=== PATIENT | male | born 1955 | race Caucasian/White ===

== ENCOUNTER 2023-01-14 23:49 | Inpatient (IN) | payer OTHER ==
[~2023-01-14] VITALS: Ht 170.2 cm; Wt 88.1 kg
[2023-01-15 00:39] LABS: Basophils # (auto) 0.1 10 ^3/uL (0-0.2); Basophils % (auto) 1.3 % (0.0-2.0); Eosinophils # (auto) 0.1 10 ^3/uL (0-0.8); Eosinophils % (auto) 1.6 % (0.0-7.0); Hematocrit 44.1 % (41.0-53.0); Hemoglobin 15.3 g/dL (13.5-17.5); Lymphocytes # (auto) 1.5 10 ^3/uL (0.4-5.4); Lymphocytes % (auto) 18.6 % (10.0-50.0); Mean Corpuscular Hemoglobin 35.1 pg (28.0-32.0); Mean Corpuscular Hgb Conc. 34.6 g/dL (32.0-36.0); Mean Corpuscular Volume 101.3 fL (80.0-100.0); Monocytes # (auto) 0.7 10 ^3/uL (0-1.3); Neutrophils # (auto) 5.6 10 ^3/uL (1.6-8.6); Neutrophils % (auto) 69.5 % (37.0-80.0); Nucleated Red Blood Cells % 0.2 %; Red Blood Cells 4.35 10^6/uL (4.5-5.90); Red Cell Distribution Width 14.4 % (11.8-14.3)
[2023-01-15 00:56] LABS: Albumin 3.5 g/dL (3.4-5.0); BUN/Creatinine Ratio 11.2 (10.0-20.0); Calcium 9.2 mg/dL (8.5-10.1); Magnesium 1.7 mg/dL (1.6-2.6); Potassium 3.4 mmol/L (3.5-5.1)
[2023-01-15 00:59] LABS: Bilirubin, Total 0.5 mg/dL (0.2-1.0); Total Protein 6.7 g/dL (6.4-8.2)
[2023-01-15] MEDS ORDERED: PANTOPRAZOLE 40 MG/10 ML VIAL INJ IV ONE (02:00)
[2023-01-15] MEDS ORDERED: SODIUM CHLORIDE 0.9% 1,000 ML IV ONE (02:00)
[2023-01-15] MEDS ORDERED: CLOPIDOGREL BISULFATE 75 MG TAB PO ONE (02:00)
[2023-01-15] MEDS ORDERED: ASPirin 325 MG TAB PO ONE (02:00)
[2023-01-15] MEDS ORDERED: IOHEXOL 350 MG/ML 100ML IJ ONE (02:12)
[2023-01-15] MEDS ORDERED: DOCUSATE SOD 100 MG CAP PO PRN (03:15)
[2023-01-15] MEDS ORDERED: ACETAMINOPHEN 325 MG TAB PO PRN (03:15)
[2023-01-15] MEDS ORDERED: amLODIPine BESYLATE 5 MG TAB PO ONE (03:30)
[2023-01-15 03:43] LABS: Basophils # (auto) 0.1 10 ^3/uL (0-0.2); Eosinophils # (auto) 0.1 10 ^3/uL (0-0.8); Hemoglobin 14.2 g/dL (13.5-17.5); Neutrophils # (auto) 7.3 10 ^3/uL (1.6-8.6)
[2023-01-15 03:44] LABS: Basophils % (auto) 0.7 % (0.0-2.0); Eosinophils % (auto) 0.7 % (0.0-7.0); Hematocrit 40.2 % (41.0-53.0); Lymphocytes % (auto) 10.6 % (10.0-50.0); Mean Corpuscular Hemoglobin 35.4 pg (28.0-32.0); Mean Corpuscular Hgb Conc. 35.2 g/dL (32.0-36.0); Mean Corpuscular Volume 100.3 fL (80.0-100.0); Monocytes # (auto) 0.9 10 ^3/uL (0-1.3); Monocytes % (auto) 9.5 % (0.0-12.0); Neutrophils % (auto) 78.5 % (37.0-80.0); Nucleated Red Blood Cells % 0.2 %; Red Blood Cells 4.01 10^6/uL (4.5-5.90); White Blood Cell 9.3 10^3/uL (4.4-10.8)
[2023-01-15 03:48] LABS: Urine Bacteria NONE SEEN /hpf (None Seen); Urine Blood Negative /uL (Negative); Urine Mucus FEW (None Seen); Urine Specific Gravity 1.045 (1.001-1.035); Urine WBC 1 /hpf (0 - 3)
[2023-01-15 03:49] LABS: Albumin 3.1 g/dL (3.4-5.0); BUN/Creatinine Ratio 12.4 (10.0-20.0); Calcium 8.4 mg/dL (8.5-10.1); Potassium 3.3 mmol/L (3.5-5.1)
[2023-01-15 03:52] LABS: Bilirubin, Total 0.5 mg/dL (0.2-1.0)
[2023-01-15] MEDS ORDERED: NITROGLYCERIN 0.4 MG SL TAB SL PRN (05:00)
[2023-01-15] MEDS ORDERED: MORPHINE SULFATE INJ 2 MG/ml SYRG IV PRN (05:00)
[2023-01-15] MEDS: HYDROcodone-ACET 5/325MG TAB PO PRN (05:53)
[2023-01-15] MEDS: SODIUM CHLORIDE 0.9% 1,000 ML IV SCH ×2 (06:15→22:33)
[2023-01-15] MEDS ORDERED: DEXTROSE (50%) 50ML SYRG IV PRN (07:30)
[2023-01-15] MEDS ORDERED: POTASSIUM CHL 20 Meq TABLET PO ONE (07:45)
[2023-01-15] MEDS: MORPHINE SULFATE INJ 2 MG/ml SYRG IV PRN (09:54)
[2023-01-15] MEDS: ONDANSETRON HCL 4 MG/2 ML VIAL IV PRN (09:54)
[2023-01-15] MEDS: hydrALAZINE HCL 20 MG/ML VL IV PRN ×2 (09:54→15:40)
[2023-01-15 10:24] LABS: INR 0.97 (0.9-1.15); Partial Thromboplastin Time 28.1 sec (24.6-33.4)
[2023-01-15] MEDS: FAMOTIDINE (10MG/ML) 2ML VL IV SCH (10:37)
[2023-01-15] MEDS: METOPROLOL TARTRATE 25 MG TAB PO SCH ×2 (10:39→22:32)
[2023-01-15] MEDS: ASPirin 81 mg TAB PO SCH (10:40)
[2023-01-15] MEDS: ACCU-CHEK COMFORT CURVE STRIP VI SCH ×3 (12:57→22:32)
[2023-01-15] MEDS: InsuLIN REG 1unit/0.01ml Soln (100units/ml) SC SCH ×3 (12:58→22:40)
[2023-01-15 16:22] VITALS: BP 164/90
[2023-01-15 17:00] VITALS: BP 164/90
[2023-01-15 22:00] VITALS: BP 153/92
[2023-01-15] MEDS ORDERED: LORazepam 2MG/ML-1ML VIAL IV PRN ×2 (23:00)
[2023-01-15 23:33] LABS: Alcohol, Urine < 3.0 mg/dL (0-10); Amphetamine Screen, Urine NEGATIVE (NEGATIVE); Barbiturate Scree,Urine NEGATIVE (NEGATIVE); Benzodiazephine Screen, Urine NEGATIVE (NEGATIVE); Cannabinoid Screen, Urine POSITIVE (NEGATIVE)
[2023-01-15 23:40] LABS: Cocaine Screen, Urine NEGATIVE (NEGATIVE); Opiate Scree,Urine NEGATIVE (NEGATIVE); Phencyclidine Screen, Urine NEGATIVE (NEGATIVE)
[2023-01-16 00:14] LABS: Cholesterol 245 mg/dL (< 200)
[2023-01-16 00:17] LABS: HDL Cholesterol 32 mg/dL (40-59); LDL Cholesterol 157 mg/dL (< 100); Triglycerides 379 mg/dL (< 150)
[2023-01-16 05:00] VITALS: BP 147/82
[2023-01-16] MEDS: ACCU-CHEK COMFORT CURVE STRIP VI SCH ×4 (06:38→22:00)
[2023-01-16] MEDS: InsuLIN REG 1unit/0.01ml Soln (100units/ml) SC SCH ×4 (06:41→22:00)
[2023-01-16 07:00] LABS: Basophils # (auto) 0.1 10 ^3/uL (0-0.2); Eosinophils # (auto) 0.1 10 ^3/uL (0-0.8); Hemoglobin 14.1 g/dL (13.5-17.5); Mean Corpuscular Volume 102.7 fL (80.0-100.0); Monocytes # (auto) 0.9 10 ^3/uL (0-1.3); Nucleated Red Blood Cells % 0.1 %
[2023-01-16 07:03] LABS: Basophils % (auto) 0.7 % (0.0-2.0); Eosinophils % (auto) 0.8 % (0.0-7.0); Lymphocytes % (auto) 12.6 % (10.0-50.0); Mean Corpuscular Hemoglobin 35.4 pg (28.0-32.0); Mean Corpuscular Hgb Conc. 34.5 g/dL (32.0-36.0); Monocytes % (auto) 11.2 % (0.0-12.0); Neutrophils # (auto) 6.1 10 ^3/uL (1.6-8.6); Neutrophils % (auto) 74.7 % (37.0-80.0); White Blood Cell 8.2 10^3/uL (4.4-10.8)
[2023-01-16 07:05] LABS: Albumin 3.4 g/dL (3.4-5.0); Calcium 8.5 mg/dL (8.5-10.1); Potassium 3.6 mmol/L (3.5-5.1)
[2023-01-16 07:10] LABS: BUN/Creatinine Ratio 10.7 (10.0-20.0); Bilirubin, Total 0.6 mg/dL (0.2-1.0); Total Protein 6.5 g/dL (6.4-8.2)
[2023-01-16 09:00] VITALS: BP 127/58
[2023-01-16] MEDS: NIFEdipine ER 30 MG TAB PO SCH (09:48)
[2023-01-16] MEDS: ASPirin 81 mg TAB PO SCH (09:48)
[2023-01-16] MEDS: levETIRAcetam 500 MG TAB PO SCH ×2 (09:49→22:17)
[2023-01-16] MEDS: METOPROLOL TARTRATE 25 MG TAB PO SCH ×2 (09:49→22:17)
[2023-01-16] MEDS ORDERED: amLODIPine BESYLATE 5 MG TAB PO SCH (10:00)
[2023-01-16] MEDS: FAMOTIDINE (10MG/ML) 2ML VL IV SCH (12:00)
[2023-01-16 13:00] VITALS: BP 164/78
[2023-01-16] MEDS: SODIUM CHLORIDE 0.9% 1,000 ML IV SCH (13:09)
[2023-01-16] MEDS ORDERED: HALOPERIDOL LACTATE 5 MG/ML INJ VIAL IV PRN (16:15)
[2023-01-16 16:56] VITALS: BP 148/83
[2023-01-16] MEDS ORDERED: LORazepam 2MG/ML-1ML VIAL IV ONE (17:00)
[2023-01-16] MEDS ORDERED: LORazepam 2MG/ML-1ML VIAL IV PRN (17:00)
[2023-01-16] MEDS: MORPHINE SULFATE INJ 2 MG/ml SYRG IV PRN (18:20)
[2023-01-16] MEDS ORDERED: ATOR40TA52 PO (18:40)
[2023-01-16] MEDS ORDERED: METF-370 PO (18:40)
[2023-01-16] MEDS ORDERED: LISI-275 PO (18:40)
[2023-01-16] MEDS ORDERED: GEMF-66 PO (18:40)
[2023-01-16] MEDS ORDERED: ZONI100C43 PO (18:40)
[2023-01-16] MEDS ORDERED: TAMS0.4C36 PO (18:40)
[2023-01-16] MEDS ORDERED: METO-289 PO (18:40)
[2023-01-16 22:00] VITALS: BP_SYST 95
[2023-01-16] MEDS ORDERED: ATORVASTATIN 20 MG TAB PO SCH (22:00)
[2023-01-17 05:00] VITALS: BP 129/68
[2023-01-17] MEDS: SODIUM CHLORIDE 0.9% 1,000 ML IV SCH ×2 (05:15→21:55)
[2023-01-17] MEDS: ACCU-CHEK COMFORT CURVE STRIP VI SCH ×4 (06:00→23:12)
[2023-01-17] MEDS: InsuLIN REG 1unit/0.01ml Soln (100units/ml) SC SCH ×4 (06:01→22:00)
[2023-01-17] MEDS: FAMOTIDINE (10MG/ML) 2ML VL IV SCH (08:17)
[2023-01-17] MEDS: ASPirin 81 mg TAB PO SCH (08:17)
[2023-01-17] MEDS: NIFEdipine ER 30 MG TAB PO SCH (08:18)
[2023-01-17] MEDS: METOPROLOL TARTRATE 25 MG TAB PO SCH ×2 (08:27→22:23)
[2023-01-17 08:30] VITALS: BP 167/100
[2023-01-17 12:31] VITALS: BP 157/94
[2023-01-17] MEDS: levETIRAcetam 500 MG TAB PO SCH ×2 (12:31→22:23)
[2023-01-17] MEDS: ATORVASTATIN 20 MG TAB PO SCH (16:15)
[2023-01-17 16:36] VITALS: BP 155/87
[2023-01-17 22:00] VITALS: BP 163/79
[2023-01-17] MEDS: MORPHINE SULFATE INJ 2 MG/ml SYRG IV PRN (22:24)
[2023-01-18 05:00] VITALS: BP 141/81
[2023-01-18] MEDS: InsuLIN REG 1unit/0.01ml Soln (100units/ml) SC SCH ×4 (06:59→22:25)
[2023-01-18] MEDS: ACCU-CHEK COMFORT CURVE STRIP VI SCH ×4 (06:59→22:25)
[2023-01-18 08:48] VITALS: BP 112/67
[2023-01-18] MEDS: ASPirin 81 mg TAB PO SCH (10:10)
[2023-01-18] MEDS: CLOPIDOGREL BISULFATE 75 MG TAB PO SCH (10:10)
[2023-01-18] MEDS: FAMOTIDINE (10MG/ML) 2ML VL IV SCH (10:10)
[2023-01-18] MEDS: NIFEdipine ER 30 MG TAB PO SCH (10:10)
[2023-01-18] MEDS: levETIRAcetam 500 MG TAB PO SCH ×2 (10:10→22:18)
[2023-01-18] MEDS: METOPROLOL TARTRATE 25 MG TAB PO SCH ×2 (10:11→22:18)
[2023-01-18 13:00] VITALS: BP 147/87
[2023-01-18 17:00] VITALS: BP 152/69
[2023-01-18] MEDS ORDERED: ZOLPIDEM TARTRATE 5 MG TAB PO PRN (17:15)
[2023-01-18 22:00] VITALS: BP 152/72
[2023-01-18] MEDS: ATORVASTATIN 20 MG TAB PO SCH (22:17)
[2023-01-19 01:05] LABS: INR 0.98 (0.9-1.15); Partial Thromboplastin Time 27.4 sec (24.6-33.4)
[2023-01-19 03:08] LABS: Urine Bacteria NONE SEEN /hpf (None Seen); Urine Blood Negative /uL (Negative); Urine WBC 1 /hpf (0 - 3)
[2023-01-19 05:00] VITALS: BP 138/76
[2023-01-19] MEDS: ACCU-CHEK COMFORT CURVE STRIP VI SCH ×4 (06:20→22:19)
[2023-01-19] MEDS: InsuLIN REG 1unit/0.01ml Soln (100units/ml) SC SCH ×4 (06:21→22:00)
[2023-01-19 08:00] VITALS: BP 142/82
[2023-01-19] MEDS: CLOPIDOGREL BISULFATE 75 MG TAB PO SCH (08:55)
[2023-01-19] MEDS: ASPirin 81 mg TAB PO SCH (08:55)
[2023-01-19] MEDS: levETIRAcetam 500 MG TAB PO SCH ×2 (08:55→22:16)
[2023-01-19] MEDS: METOPROLOL TARTRATE 25 MG TAB PO SCH ×2 (08:56→22:16)
[2023-01-19] MEDS: NIFEdipine ER 30 MG TAB PO SCH (08:57)
[2023-01-19 12:22] VITALS: BP 138/80
[2023-01-19] MEDS ORDERED: fentaNYL CITRATE 100 MCG/2 ML VL IV ONE (13:15)
[2023-01-19] MEDS ORDERED: MIDAZOLAM HCL 2MG/2ML 2ml VIAL (1mg/ml) IM ONE (13:15)
[2023-01-19] MEDS ORDERED: diphenhdrAMINE HCL 50 MG/1 ML VL IV ONE (13:15)
[2023-01-19 17:10] VITALS: BP 138/81
[2023-01-19] MEDS: HYDROcodone-ACET 5/325MG TAB PO PRN (22:15)
[2023-01-19] MEDS: ATORVASTATIN 20 MG TAB PO SCH (22:16)
[2023-01-20] MEDS: HYDROcodone-ACET 5/325MG TAB PO PRN ×2 (06:46→22:05)
[2023-01-20] MEDS: InsuLIN REG 1unit/0.01ml Soln (100units/ml) SC SCH ×4 (06:48→22:00)
[2023-01-20] MEDS: ACCU-CHEK COMFORT CURVE STRIP VI SCH ×4 (06:48→22:06)
[2023-01-20 08:40] VITALS: BP 153/83
[2023-01-20] MEDS: NIFEdipine ER 30 MG TAB PO SCH (09:35)
[2023-01-20] MEDS: ASPirin 81 mg TAB PO SCH (09:36)
[2023-01-20] MEDS: CLOPIDOGREL BISULFATE 75 MG TAB PO SCH (09:36)
[2023-01-20] MEDS: levETIRAcetam 500 MG TAB PO SCH ×2 (09:36→22:05)
[2023-01-20] MEDS: METOPROLOL TARTRATE 25 MG TAB PO SCH ×2 (09:36→22:06)
[2023-01-20 12:28] VITALS: BP 145/83
[2023-01-20 17:00] VITALS: BP 125/89
[2023-01-20] MEDS: ATORVASTATIN 20 MG TAB PO SCH (22:05)
[2023-01-21 05:00] VITALS: BP 134/83
[2023-01-21] MEDS: ACCU-CHEK COMFORT CURVE STRIP VI SCH ×4 (06:36→22:20)
[2023-01-21] MEDS: InsuLIN REG 1unit/0.01ml Soln (100units/ml) SC SCH ×4 (06:36→22:00)
[2023-01-21 08:30] VITALS: BP 159/90
[2023-01-21 09:00] VITALS: BP 159/90
[2023-01-21] MEDS: METOPROLOL TARTRATE 25 MG TAB PO SCH ×2 (09:25→22:19)
[2023-01-21] MEDS: NIFEdipine ER 30 MG TAB PO SCH (09:26)
[2023-01-21] MEDS: CLOPIDOGREL BISULFATE 75 MG TAB PO SCH (09:26)
[2023-01-21] MEDS: ASPirin 81 mg TAB PO SCH (09:26)
[2023-01-21] MEDS: levETIRAcetam 500 MG TAB PO SCH ×2 (09:26→22:19)
[2023-01-21 13:00] VITALS: BP 160/94
[2023-01-21] MEDS: hydrALAZINE HCL 20 MG/ML VL IV PRN (15:58)
[2023-01-21 17:12] VITALS: BP 145/88
[2023-01-21 22:00] VITALS: BP 152/75
[2023-01-21] MEDS: ATORVASTATIN 20 MG TAB PO SCH (22:19)
[2023-01-21] MEDS: HYDROcodone-ACET 5/325MG TAB PO PRN (22:20)
[2023-01-22 05:00] VITALS: BP 130/83
[2023-01-22] MEDS: ACCU-CHEK COMFORT CURVE STRIP VI SCH ×4 (06:47→23:13)
[2023-01-22] MEDS: InsuLIN REG 1unit/0.01ml Soln (100units/ml) SC SCH ×4 (06:47→22:00)
[2023-01-22] MEDS ORDERED: CLOP75TA70 PO (07:59)
[2023-01-22] MEDS ORDERED: ATOR20TA50 PO (07:59)
[2023-01-22] MEDS ORDERED: NIFE1TAB31 PO (07:59)
[2023-01-22] MEDS ORDERED: MET25T PO (07:59)
[2023-01-22] MEDS ORDERED: ASPI-325 PO (07:59)
[2023-01-22 09:00] VITALS: BP 161/89
[2023-01-22] MEDS: NIFEdipine ER 30 MG TAB PO SCH (09:17)
[2023-01-22] MEDS: levETIRAcetam 500 MG TAB PO SCH ×2 (09:17→23:13)
[2023-01-22] MEDS: METOPROLOL TARTRATE 25 MG TAB PO SCH ×2 (09:17→23:13)
[2023-01-22] MEDS: ASPirin 81 mg TAB PO SCH (09:17)
[2023-01-22] MEDS: CLOPIDOGREL BISULFATE 75 MG TAB PO SCH (09:17)
[2023-01-22 17:00] VITALS: BP 165/92
[2023-01-22] MEDS: HYDROcodone-ACET 5/325MG TAB PO PRN (17:19)
[2023-01-22 22:00] VITALS: BP 154/84
[2023-01-22] MEDS: ATORVASTATIN 20 MG TAB PO SCH (23:12)
[2023-01-23] VITALS (7 sets, daily range): BP systolic 129–171; BP diastolic 71–102
[2023-01-23] MEDS: InsuLIN REG 1unit/0.01ml Soln (100units/ml) SC SCH (06:38)
[2023-01-23] MEDS: ACCU-CHEK COMFORT CURVE STRIP VI SCH (06:39)
[2023-01-23] MEDS: ONDANSETRON HCL 4 MG/2 ML VIAL IV PRN (08:34)
[2023-01-23] MEDS: hydrALAZINE HCL 20 MG/ML VL IV PRN (08:35)
[2023-01-23] MEDS: levETIRAcetam 500 MG TAB PO SCH ×2 (10:29→22:11)
[2023-01-23] MEDS: CLOPIDOGREL BISULFATE 75 MG TAB PO SCH (10:29)
[2023-01-23] MEDS: ASPirin 81 mg TAB PO SCH (10:29)
[2023-01-23] MEDS: METOPROLOL TARTRATE 25 MG TAB PO SCH ×2 (10:29→22:11)
[2023-01-23] MEDS: NIFEdipine ER 30 MG TAB PO SCH (10:30)
[2023-01-23] MEDS: ATORVASTATIN 20 MG TAB PO SCH (22:11)
[2023-01-24 05:00] VITALS: BP 123/61
[2023-01-24 08:45] VITALS: BP 145/90
[2023-01-24 12:49] VITALS: BP 150/79
[2023-01-24] MEDS: levETIRAcetam 500 MG TAB PO SCH (14:06)
[2023-01-24] MEDS: CLOPIDOGREL BISULFATE 75 MG TAB PO SCH (14:06)
[2023-01-24] MEDS: ASPirin 81 mg TAB PO SCH (14:06)
[2023-01-24] MEDS: NIFEdipine ER 30 MG TAB PO SCH (14:09)
[2023-01-24] MEDS: hydrALAZINE HCL 20 MG/ML VL IV PRN (14:10)
[2023-01-24] MEDS: METOPROLOL TARTRATE 25 MG TAB PO SCH (14:10)
[2023-01-24 16:49] VITALS: BP 156/74
[2023-01-24 17:32] VITALS: BP 160/92
== END 2023-01-24 18:30 | DRG 66 ==
LOC: ER 23:49 → TELE 01-15 04:55 → TELE-WESTW 01-15 16:17
PROVIDERS: ADMIT Nurse Practitioner Family; ATTEND Internal Medicine
PROC: B24BZZ4 Ultrasonography of Heart with Aorta, Transesophageal (ICD-10-PCS; principal; 2023-01-19)
DX: I63.9 Cerebral infarction, unspecified (principal); E87.6 Hypokalemia; I16.0 Hypertensive urgency; G40.409 Other generalized epilepsy and epileptic syndromes, not intractable, without status epilepticus; E11.9 Type 2 diabetes mellitus without complications; I10 Essential (primary) hypertension; R29.6 Repeated falls; N40.0 Benign prostatic hyperplasia without lower urinary tract symptoms; F17.200 Nicotine dependence, unspecified, uncomplicated; E78.5 Hyperlipidemia, unspecified; R29.810 Facial weakness; Z83.3 Family history of diabetes mellitus; Z82.0 Family history of epilepsy and other diseases of the nervous system; Z79.82 Long term (current) use of aspirin; Z79.899 Other long term (current) drug therapy
CPT/HCPCS: 36415; 70450; 70496; 70551; 71045; 71046; 71250; 74176; 80053; 80061; 80307; 81001; 82962; 83735; 83880; 84484; 85025; 85610; 85730; 86850; 86900; 86901; 93005; 93306; 93312; 93886; 95819; 96361; 96374; 97110; 97116; 97163; 97530; 99152; C9113; G0378; J1815; J2250; J2405; J3490

== ENCOUNTER 2023-12-08 14:23 | Inpatient (IN) | payer OTHER ==
[~2023-12-08] VITALS: Ht 170.2 cm; Wt 79.6 kg
[~2023-12-08 14:23] MED LIST: ASPI-325 PO; ATOR20TA50 PO; CLOP75TA70 PO; GEMF-66 PO; LISI-275 PO; MET25T PO; NIFE1TAB31 PO; TAMS0.4C36 PO; ZONI100C43 PO
[2023-12-08 16:46] LABS: Basophils # (auto) 0.1 10 ^3/uL (0-0.2); Basophils % (auto) 0.6 % (0.0-2.0); Eosinophils # (auto) 0 10 ^3/uL (0-0.8); Eosinophils % (auto) 0.1 % (0.0-7.0); Hematocrit 41.3 % (41.0-53.0); Hemoglobin 14.2 g/dL (13.5-17.5); Lymphocytes # (auto) 0.8 10 ^3/uL (0.4-5.4); Lymphocytes % (auto) 7.8 % (10.0-50.0); Mean Corpuscular Hemoglobin 32.8 pg (28.0-32.0); Mean Corpuscular Hgb Conc. 34.4 g/dL (32.0-36.0); Mean Corpuscular Volume 95.4 fL (80.0-100.0); Monocytes # (auto) 0.7 10 ^3/uL (0-1.3); Monocytes % (auto) 6.5 % (0.0-12.0); Neutrophils # (auto) 9.1 10 ^3/uL (1.6-8.6); Red Blood Cells 4.33 10^6/uL (4.5-5.90); Red Cell Distribution Width 13.6 % (11.8-14.3); White Blood Cell 10.7 10^3/uL (4.4-10.8)
[2023-12-08 17:06] LABS: Alanine Aminotransferase 16 U/L (7-40); Albumin 5.1 g/dL (3.2-4.8); Alkaline Phosphatase 101 U/L (46-116); Anion Gap 7 (5-15); Aspartate Aminotransferase 12 U/L (13-40); BUN/Creatinine Ratio 13.1 (10.0-20.0); Blood Urea Nitrogen 16 mg/dL (9-23); Carbon Dioxide 22 mmol/L (20-30); Chloride 108 mmol/L (98-107); Glucose 133 mg/dL (74-106); Lipase 100 U/L (12-53); Potassium 3.7 mmol/L (3.5-5.1); Sodium 137 mmol/L (136-145)
[2023-12-08 17:07] LABS: Bilirubin, Total 0.5 mg/dL (0.2-1.0); Total Protein 7.3 g/dL (5.7-8.2)
[2023-12-08 20:15] LABS: Urine Bacteria None Seen /hpf (None Seen)
[2023-12-08 20:54] LABS: Urine Blood Negative /uL (Negative); Urine Clarity Clear (Clear); Urine Color Yellow (Yellow); Urine Mucus FEW (None Seen); Urine Protein, UAD TRACE (Negative); Urine Specific Gravity 1.027 (1.001-1.035); Urine Urobilinogen Normal (Negative); Urine WBC 4 /hpf (0 - 3)
[2023-12-08] MEDS: cefTRIAXone 1GM/50ML D5W 50 ML IV ONE (22:50)
[2023-12-08] MEDS: ONDANSETRON HCL 4 MG/2 ML VIAL IV ONE (23:56)
[2023-12-09] MEDS ORDERED: NITROGLYCERIN 0.4 MG SL TAB SL PRN
[2023-12-09] MEDS ORDERED: ONDANSETRON HCL 4 MG/2 ML VIAL IV PRN
[2023-12-09] MEDS ORDERED: DEXTROSE (50%) 50ML SYRG IV PRN
[2023-12-09] MEDS ORDERED: MORPHINE SULFATE INJ 2 MG/ml SYRG IV PRN
[2023-12-09] MEDS ORDERED: DOCUSATE SOD 100 MG CAP PO PRN
[2023-12-09] MEDS ORDERED: ACETAMINOPHEN 325 MG TAB PO PRN
[2023-12-09] MEDS: SODIUM CHLORIDE 0.9% 1,000 ML IV SCH (00:51)
[2023-12-09] MEDS: HYDROcodone-ACET 5/325MG TAB PO PRN (02:24)
[2023-12-09] MEDS: InsuLIN REG 1unit/0.01ml Soln (100units/ml) SC SCH (07:00)
[2023-12-09 07:23] LABS: Basophils # (auto) 0 10 ^3/uL (0-0.2); Basophils % (auto) 0.3 % (0.0-2.0); Eosinophils # (auto) 0 10 ^3/uL (0-0.8); Eosinophils % (auto) 0.1 % (0.0-7.0); Hematocrit 39.5 % (41.0-53.0); Hemoglobin 13.4 g/dL (13.5-17.5); Lymphocytes # (auto) 0.9 10 ^3/uL (0.4-5.4); Lymphocytes % (auto) 7.7 % (10.0-50.0); Mean Corpuscular Hemoglobin 32.6 pg (28.0-32.0); Mean Corpuscular Hgb Conc. 33.8 g/dL (32.0-36.0); Mean Corpuscular Volume 96.6 fL (80.0-100.0); Monocytes % (auto) 7.8 % (0.0-12.0); Neutrophils # (auto) 10.4 10 ^3/uL (1.6-8.6); Neutrophils % (auto) 84.1 % (37.0-80.0); Red Blood Cells 4.09 10^6/uL (4.5-5.90); Red Cell Distribution Width 13.3 % (11.8-14.3); White Blood Cell 12.3 10^3/uL (4.4-10.8)
[2023-12-09] MEDS: ACCU-CHEK COMFORT CURVE STRIP VI SCH (07:24)
[2023-12-09 07:37] LABS: Alanine Aminotransferase 12 U/L (7-40); Albumin 4.7 g/dL (3.2-4.8); Alkaline Phosphatase 92 U/L (46-116); Anion Gap 12 (5-15); Aspartate Aminotransferase 16 U/L (13-40); BUN/Creatinine Ratio 13.5 (10.0-20.0); Bilirubin, Total 0.4 mg/dL (0.2-1.0); Blood Urea Nitrogen 14 mg/dL (9-23); Calcium 9.1 mg/dL (8.5-10.1); Carbon Dioxide 16 mmol/L (20-30); Chloride 109 mmol/L (98-107); Glucose 130 mg/dL (74-106); Potassium 3.7 mmol/L (3.5-5.1); Sodium 137 mmol/L (136-145); Total Protein 6.5 g/dL (5.7-8.2)
[2023-12-09] MEDS: FAMOTIDINE (10MG/ML) 2ML VL IV SCH (10:21)
[2023-12-09] MEDS: hydrALAZINE HCL 20 MG/ML VL IV PRN (17:17)
[2023-12-09 18:52] VITALS: BP 147/87; PULSE 83; RESP 16; TEMP 97.6; O2SAT 93
[2023-12-09 20:00] VITALS: BP 146/66; PULSE 69; RESP 20; TEMP 99; O2SAT 94
[2023-12-10] VITALS (8 sets, daily range): BP systolic 128–181; BP diastolic 65–89; PULSE 59–86; RESP 16–18; TEMP 97.7–98.8; O2SAT 93–96
[2023-12-10 05:34] LABS: Basophils # (auto) 0.1 10 ^3/uL (0-0.2); Basophils % (auto) 0.8 % (0.0-2.0); Eosinophils # (auto) 0 10 ^3/uL (0-0.8); Eosinophils % (auto) 0.4 % (0.0-7.0); Hematocrit 38.2 % (41.0-53.0); Hemoglobin 13.1 g/dL (13.5-17.5); Lymphocytes # (auto) 1.2 10 ^3/uL (0.4-5.4); Lymphocytes % (auto) 11.3 % (10.0-50.0); Mean Corpuscular Hemoglobin 32.9 pg (28.0-32.0); Mean Corpuscular Hgb Conc. 34.3 g/dL (32.0-36.0); Mean Corpuscular Volume 96.1 fL (80.0-100.0); Monocytes # (auto) 1.1 10 ^3/uL (0-1.3); Monocytes % (auto) 10.7 % (0.0-12.0); Neutrophils # (auto) 8.1 10 ^3/uL (1.6-8.6); Neutrophils % (auto) 76.8 % (37.0-80.0); Red Blood Cells 3.98 10^6/uL (4.5-5.90); Red Cell Distribution Width 13.1 % (11.8-14.3); White Blood Cell 10.6 10^3/uL (4.4-10.8)
[2023-12-10 05:53] LABS: Alanine Aminotransferase 15 U/L (7-40); Albumin 4.2 g/dL (3.2-4.8); Alkaline Phosphatase 87 U/L (46-116); Anion Gap 11 (5-15); Aspartate Aminotransferase 19 U/L (13-40); BUN/Creatinine Ratio 12.1 (10.0-20.0); Blood Urea Nitrogen 12 mg/dL (9-23); Carbon Dioxide 18 mmol/L (20-30); Chloride 109 mmol/L (98-107); Glucose 110 mg/dL (74-106); Potassium 3.5 mmol/L (3.5-5.1); Sodium 138 mmol/L (136-145)
[2023-12-10 05:54] LABS: Bilirubin, Total 0.6 mg/dL (0.2-1.0); Total Protein 5.8 g/dL (5.7-8.2)
[2023-12-10] MEDS: CLOPIDOGREL BISULFATE 75 MG TAB PO ONE (13:00)
[2023-12-10] MEDS: NIFEdipine ER 30 MG TAB PO ONE (14:09)
[2023-12-10] MEDS: metroNIDAZOLE 500MG/100ML 100 ML IV SCH (14:16)
[2023-12-10 18:53] LABS: Alanine Aminotransferase 14 U/L (7-40); Albumin 4.1 g/dL (3.2-4.8); Alkaline Phosphatase 92 U/L (46-116); Anion Gap 8 (5-15); Aspartate Aminotransferase 13 U/L (13-40); BUN/Creatinine Ratio 17.2 (10.0-20.0); Bilirubin, Total 0.6 mg/dL (0.2-1.0); Blood Urea Nitrogen 17 mg/dL (9-23); Carbon Dioxide 19 mmol/L (20-30); Chloride 110 mmol/L (98-107); Glucose 90 mg/dL (74-106); Lipase 58 U/L (12-53); Potassium 3.4 mmol/L (3.5-5.1); Sodium 137 mmol/L (136-145); Total Protein 5.6 g/dL (5.7-8.2)
[2023-12-10] MEDS: TAMSULOSIN HYDROCHLORIDE 0.4 MG CAP PO SCH (18:57)
[2023-12-10] MEDS: ATORVASTATIN 20 MG TAB PO SCH (21:53)
[2023-12-10] MEDS: GEMFIBROZIL 600 MG TAB PO SCH (21:53)
[2023-12-10] MEDS: METOPROLOL TARTRATE 25 MG TAB PO SCH (21:54)
[2023-12-10] MEDS: ZONISAMIDE 100 MG CAPSULE PO SCH (22:00)
[2023-12-11] VITALS (7 sets, daily range): BP systolic 131–150; BP diastolic 57–80; PULSE 66–87; RESP 16–20; TEMP 37; O2SAT 94–97
[2023-12-11] MEDS: LISINOPRIL 5 MG TAB PO SCH (09:51)
[2023-12-11] MEDS: ASPirin 81 mg TAB PO SCH (09:51)
[2023-12-11] MEDS: levoFLOXacin 500MG 100 ML IV SCH (09:52)
[2023-12-11] MEDS: POTASSIUM CHL 20 Meq TABLET PO ONE (13:06)
[2023-12-11] MEDS ORDERED: LACTULOSE 20Gm/30ML SOLN PO PRN (16:00)
[2023-12-12] VITALS (7 sets, daily range): BP systolic 137–155; BP diastolic 67–82; PULSE 56–71; RESP 17–18; TEMP 97.5–98.6; O2SAT 94–96
[2023-12-12] MEDS: ZONISAMIDE 100 MG CAPSULE PO SCH (21:15)
[2023-12-13] VITALS (7 sets, daily range): BP systolic 119–157; BP diastolic 53–80; PULSE 58–66; RESP 16–18; TEMP 36.5; O2SAT 96–97
[2023-12-13] MEDS ORDERED: LEVO500T91 PO (11:04)
[2023-12-13] MEDS ORDERED: METR-344 PO (11:04)
== END 2023-12-13 17:30 | disposition home or self-care (01) | DRG 440 ==
LOC: ER 14:23 → OVERFLOW 12-09 00:05 → WEST WING 12-09 17:59
PROVIDERS: ADMIT Nurse Practitioner Family; ATTEND Family Medicine
DX: K85.90 Acute pancreatitis without necrosis or infection, unspecified (principal); I16.0 Hypertensive urgency; K57.30 Diverticulosis of large intestine without perforation or abscess without bleeding; K52.9 Noninfective gastroenteritis and colitis, unspecified; E11.9 Type 2 diabetes mellitus without complications; I10 Essential (primary) hypertension; E78.00 Pure hypercholesterolemia, unspecified; N40.0 Benign prostatic hyperplasia without lower urinary tract symptoms; R19.5 Other fecal abnormalities; Z82.0 Family history of epilepsy and other diseases of the nervous system; Z86.73 Personal history of transient ischemic attack (TIA), and cerebral infarction without residual deficits; Z83.3 Family history of diabetes mellitus; Z79.02 Long term (current) use of antithrombotics/antiplatelets; E66.01 Morbid (severe) obesity due to excess calories; Z68.27 Body mass index [BMI] 27.0-27.9, adult
CPT/HCPCS: 36415; 71045; 74176; 80053; 81001; 82962; 83036; 83605; 83690; 84484; 85025; 93005; 96365; 96375; G0378; J1815; J1956; J2405; J3490

== ENCOUNTER 2023-12-17 23:33 | Inpatient (IN) | payer OTHER ==
[~2023-12-17] VITALS: Ht 170.2 cm; Wt 78.7 kg
[~2023-12-17 23:33] MED LIST changes: +LEVO500T91 PO; +METR-344 PO
[2023-12-18 00:49] LABS: Basophils # (auto) 0 10 ^3/uL (0-0.2); Basophils % (auto) 0.2 % (0.0-2.0); Eosinophils # (auto) 0 10 ^3/uL (0-0.8); Hematocrit 40.6 % (41.0-53.0); Hemoglobin 13.9 g/dL (13.5-17.5); Lymphocytes # (auto) 0.9 10 ^3/uL (0.4-5.4); Lymphocytes % (auto) 6.8 % (10.0-50.0); Mean Corpuscular Hemoglobin 32.2 pg (28.0-32.0); Mean Corpuscular Hgb Conc. 34.1 g/dL (32.0-36.0); Mean Corpuscular Volume 94.4 fL (80.0-100.0); Monocytes # (auto) 1.1 10 ^3/uL (0-1.3); Monocytes % (auto) 7.9 % (0.0-12.0); Neutrophils # (auto) 11.4 10 ^3/uL (1.6-8.6); Neutrophils % (auto) 85.1 % (37.0-80.0); Red Cell Distribution Width 13.1 % (11.8-14.3); White Blood Cell 13.4 10^3/uL (4.4-10.8)
[2023-12-18] MEDS: IOHEXOL 350 MG/ML 100ML IJ ONE (00:49)
[2023-12-18 00:58] LABS: Alanine Aminotransferase 12 U/L (7-40); Albumin 4.6 g/dL (3.2-4.8); Alkaline Phosphatase 93 U/L (46-116); Anion Gap 12 (5-15); Aspartate Aminotransferase 9 U/L (13-40); BUN/Creatinine Ratio 11.3 (10.0-20.0); Blood Urea Nitrogen 15 mg/dL (9-23); Calcium 9.7 mg/dL (8.7-10.4); Carbon Dioxide 18 mmol/L (20-30); Chloride 106 mmol/L (98-107); Glucose 159 mg/dL (74-106); Lipase 40 U/L (12-53); Potassium 3.4 mmol/L (3.5-5.1); Sodium 136 mmol/L (136-145)
[2023-12-18 00:59] LABS: Bilirubin, Total 0.5 mg/dL (0.2-1.0); Total Protein 6.8 g/dL (5.7-8.2)
[2023-12-18] MEDS: SODIUM CHLORIDE 0.9% 1,000 ML IV ONE (01:25)
[2023-12-18] MEDS: ONDANSETRON HCL 4 MG/2 ML VIAL IV ONE (01:33)
[2023-12-18] MEDS: MORPHINE SULFATE 4 MG/ML SYR/VIAL IV ONE (01:34)
[2023-12-18] MEDS: PANTOPRAZOLE 40 MG/10 ML VIAL INJ IV ONE (05:01)
[2023-12-18 05:08] VITALS: PULSE 104; RESP 20; O2SAT 96
[2023-12-18 07:30] VITALS: PULSE 81; RESP 18; O2SAT 95
[2023-12-18] MEDS: SODIUM CHLORIDE 0.9% 1,000 ML IV SCH (10:30)
[2023-12-18] MEDS ORDERED: DEXTROSE (50%) 50ML SYRG IV PRN (10:30)
[2023-12-18] MEDS ORDERED: DOCUSATE SOD 100 MG CAP PO PRN (10:30)
[2023-12-18] MEDS: DICYCLOMINE HCL (10MG/ML) 2 ML AMPULE IM ONE (10:30)
[2023-12-18 10:37] LABS: Urine Bacteria None Seen /hpf (None Seen)
[2023-12-18] MEDS: ZONISAMIDE 100 MG PO SCH (11:57)
[2023-12-18] MEDS: ACCU-CHEK COMFORT CURVE STRIP VI SCH (12:00)
[2023-12-18] MEDS: InsuLIN REG 1unit/0.01ml Soln (100units/ml) SC SCH (12:00)
[2023-12-18 12:26] LABS: Urine Blood Negative /uL (Negative); Urine Clarity Clear (Clear); Urine Color Yellow (Yellow); Urine Protein, UAD TRACE (Negative); Urine Urobilinogen Normal (Negative); Urine WBC 1 /hpf (0 - 3); Urine pH 6.5 (5.0-9.0)
[2023-12-18] MEDS: ONDANSETRON HCL 4 MG/2 ML VIAL IV PRN (12:28)
[2023-12-18] MEDS: DICYCLOMINE HCL 10 MG CAP PO SCH (12:28)
[2023-12-18] MEDS: PIPERACILLIN-TAZOB 3.375GM 100 ML IV ONE (12:28)
[2023-12-18 12:34] LABS: Urine Specific Gravity > 1.050 (1.001-1.035)
[2023-12-18] MEDS: MORPHINE SULFATE INJ 2 MG/ml SYRG IV PRN (12:37)
[2023-12-18 13:11] LABS: Creatinine, Urine 122.11 mg/dL (30.0-125.0)
[2023-12-18 14:41] LABS: Magnesium 1.5 mg/dL (1.6-2.6)
[2023-12-18] MEDS: POTASSIUM EFFERVESENT TAB 25 MEQ PO ONE (14:41)
[2023-12-18 15:06] LABS: Phosphorus 2.9 mg/dL (2.4-5.1)
[2023-12-18] MEDS: SUCRALFATE 1 GM/10 ML ORAL SUSP PO SCH (17:09)
[2023-12-18] MEDS: TAMSULOSIN HYDROCHLORIDE 0.4 MG CAP PO SCH (18:13)
[2023-12-18] MEDS ORDERED: BENZ100C97 PO (19:45)
[2023-12-18 20:00] VITALS: BP 138/74; PULSE 70; RESP 18; TEMP 98.4; O2SAT 96
[2023-12-18 20:44] VITALS: BP 149/81; PULSE 69; RESP 16; TEMP 98.4; O2SAT 96
[2023-12-18] MEDS: PIPERACILLIN-TAZOB 3.375GM 100 ML IV SCH (21:51)
[2023-12-18] MEDS: METOPROLOL TARTRATE 25 MG TAB PO SCH (21:59)
[2023-12-18] MEDS: ATORVASTATIN 20 MG TAB PO SCH (22:00)
[2023-12-18] MEDS: GEMFIBROZIL 600 MG TAB PO SCH (22:00)
[2023-12-19] VITALS (7 sets, daily range): BP systolic 116–151; BP diastolic 72–83; PULSE 61–70; RESP 16–20; TEMP 97.2–98.3; O2SAT 95–98
[2023-12-19 06:34] LABS: Albumin 3.7 g/dL (3.2-4.8); Alkaline Phosphatase 75 U/L (46-116); Anion Gap 7 (5-15); Aspartate Aminotransferase 9 U/L (13-40); BUN/Creatinine Ratio 11.7 (10.0-20.0); Bilirubin, Total 0.6 mg/dL (0.2-1.0); Blood Urea Nitrogen 13 mg/dL (9-23); Calcium 8.9 mg/dL (8.7-10.4); Carbon Dioxide 19 mmol/L (20-30); Chloride 110 mmol/L (98-107); Glucose 107 mg/dL (74-106); Sodium 136 mmol/L (136-145); Total Protein 5.3 g/dL (5.7-8.2)
[2023-12-19 06:39] LABS: Alanine Aminotransferase < 9 U/L (7-40); Basophils # (auto) 0.1 10 ^3/uL (0-0.2); Basophils % (auto) 0.7 % (0.0-2.0); Eosinophils # (auto) 0.1 10 ^3/uL (0-0.8); Eosinophils % (auto) 1.1 % (0.0-7.0); Hematocrit 34.3 % (41.0-53.0); Hemoglobin 11.8 g/dL (13.5-17.5); Lymphocytes # (auto) 1.3 10 ^3/uL (0.4-5.4); Lymphocytes % (auto) 15.8 % (10.0-50.0); Mean Corpuscular Hemoglobin 32.9 pg (28.0-32.0); Mean Corpuscular Hgb Conc. 34.4 g/dL (32.0-36.0); Mean Corpuscular Volume 95.7 fL (80.0-100.0); Monocytes # (auto) 0.9 10 ^3/uL (0-1.3); Monocytes % (auto) 11.6 % (0.0-12.0); Neutrophils # (auto) 5.8 10 ^3/uL (1.6-8.6); Neutrophils % (auto) 70.8 % (37.0-80.0); Nucleated Red Blood Cells % 0.1 %; Red Blood Cells 3.58 10^6/uL (4.5-5.90); Red Cell Distribution Width 13.1 % (11.8-14.3); White Blood Cell 8.1 10^3/uL (4.4-10.8)
[2023-12-19] MEDS ORDERED: LISINOPRIL 5 MG TAB PO SCH (10:00)
[2023-12-19] MEDS: NIFEdipine ER 30 MG TAB PO SCH (10:52)
[2023-12-19] MEDS: PANTOPRAZOLE 40 MG/10 ML VIAL INJ IV SCH (10:56)
[2023-12-19 19:08] LABS: INR 1.15 (0.9-1.15); Partial Thromboplastin Time 26.1 SEC (24.5-34.5); Prothrombin Time 12.1 sec (9.3-11.8)
[2023-12-19] MEDS: Zonisamide 100 MG CAPSULES PO SCH (23:28)
[2023-12-20] VITALS (7 sets, daily range): BP systolic 97–154; BP diastolic 51–86; PULSE 60–90; RESP 16–19; TEMP 97.6–98.8; O2SAT 96–97
[2023-12-20 07:01] LABS: INR 1.13 (0.9-1.15); Prothrombin Time 11.9 sec (9.3-11.8)
[2023-12-20] MEDS ORDERED: FLUMAZENIL 0.1 MG/ML INJ 10ML MDV IV ONE (10:53)
[2023-12-20] MEDS ORDERED: NALOXONE HCL 0.4 MG/ML VIAL ONE (10:53)
[2023-12-20] MEDS ORDERED: SODIUM CHLORIDE LOCK 10 ML ONE (10:54)
[2023-12-20] MEDS: LIDOCAINE VISCOUS 2% 15ML UD ONE (12:27)
[2023-12-20] MEDS: MIDAZOLAM HCL 5 MG/ML-1ML VIAL ONE (12:29)
[2023-12-20] MEDS: diphenhdrAMINE HCL 50 MG/1 ML VL ONE (12:29)
[2023-12-20] MEDS: fentaNYL CITRATE 100 MCG/2 ML VL ONE (12:29)
[2023-12-20] MEDS: PANTOPRAZOLE 40 MG/10 ML VIAL INJ IV SCH (21:35)
[2023-12-21 01:02] VITALS: BP 157/85; PULSE 68; RESP 18; TEMP 98; O2SAT 96
[2023-12-21 05:00] VITALS: BP 135/67; PULSE 69; RESP 18; TEMP 98; O2SAT 96
[2023-12-21 09:00] VITALS: BP 144/88; PULSE 70; RESP 16; TEMP 97.8; O2SAT 97
[2023-12-21] MEDS ORDERED: PANT40T PO (09:22)
[2023-12-21] MEDS ORDERED: SUCR1TAB PO (09:22)
== END 2023-12-21 16:30 | disposition home or self-care (01) | DRG 380 ==
LOC: ER 23:33 → OVERFLOW 12-18 10:26 → WEST WING 12-18 18:43
PROVIDERS: ADMIT Nurse Practitioner Family; ATTEND Family Medicine
PROC: 0DB78ZX Excision of Stomach, Pylorus, Via Natural or Artificial Opening Endoscopic, Diagnostic (ICD-10-PCS; 2023-12-20)
PROC: 0DB48ZX Excision of Esophagogastric Junction, Via Natural or Artificial Opening Endoscopic, Diagnostic (ICD-10-PCS; 2023-12-20)
PROC: 0DB98ZX Excision of Duodenum, Via Natural or Artificial Opening Endoscopic, Diagnostic (ICD-10-PCS; principal; 2023-12-20 12:23)
DX: K22.10 Ulcer of esophagus without bleeding (principal); N17.0 Acute kidney failure with tubular necrosis; I69.351 Hemiplegia and hemiparesis following cerebral infarction affecting right dominant side; I72.3 Aneurysm of iliac artery; K29.90 Gastroduodenitis, unspecified, without bleeding; K57.30 Diverticulosis of large intestine without perforation or abscess without bleeding; K26.9 Duodenal ulcer, unspecified as acute or chronic, without hemorrhage or perforation; E87.6 Hypokalemia; N40.0 Benign prostatic hyperplasia without lower urinary tract symptoms; J43.2 Centrilobular emphysema; I10 Essential (primary) hypertension; G40.909 Epilepsy, unspecified, not intractable, without status epilepticus; E66.9 Obesity, unspecified; E78.00 Pure hypercholesterolemia, unspecified; K44.9 Diaphragmatic hernia without obstruction or gangrene; E11.9 Type 2 diabetes mellitus without complications; C61 Malignant neoplasm of prostate; I25.10 Atherosclerotic heart disease of native coronary artery without angina pectoris; I49.1 Atrial premature depolarization; Z79.82 Long term (current) use of aspirin; Z79.899 Other long term (current) drug therapy; Z82.0 Family history of epilepsy and other diseases of the nervous system; Z83.3 Family history of diabetes mellitus; Z68.27 Body mass index [BMI] 27.0-27.9, adult
CPT/HCPCS: 36415; 43239; 71045; 71260; 74177; 80053; 81001; 82570; 82962; 83690; 83735; 83880; 84100; 84300; 84484; 85025; 85610; 85730; 86850; 86900; 86901; 87081; 93005; 93306; C9113; G0378; J2250; J2405; J2543

== ENCOUNTER 2024-01-02 19:25 | Inpatient (IN) | payer OTHER ==
[~2024-01-02] VITALS: Ht 188 cm; Wt 82.5 kg
[~2024-01-02 19:25] MED LIST changes: +BENZ100C97 PO; +PANT40T PO; +SUCR1TAB PO
[2024-01-02 21:57] LABS: Basophils # (auto) 0.2 10 ^3/uL (0-0.2); Basophils % (auto) 0.6 % (0.0-2.0); Eosinophils # (auto) 0.1 10 ^3/uL (0-0.8); Eosinophils % (auto) 0.4 % (0.0-7.0); Hematocrit 27.7 % (41.0-53.0); Hemoglobin 8.9 g/dL (13.5-17.5); Lymphocytes # (auto) 2.4 10 ^3/uL (0.4-5.4); Lymphocytes % (auto) 9.8 % (10.0-50.0); Mean Corpuscular Hemoglobin 31.8 pg (28.0-32.0); Mean Corpuscular Volume 99.4 fL (80.0-100.0); Monocytes # (auto) 1.9 10 ^3/uL (0-1.3); Monocytes % (auto) 7.8 % (0.0-12.0); Neutrophils # (auto) 20.2 10 ^3/uL (1.6-8.6); Neutrophils % (auto) 81.4 % (37.0-80.0); Nucleated Red Blood Cells % 0.1 %; Red Blood Cells 2.78 10^6/uL (4.5-5.90); Red Cell Distribution Width 14.1 % (11.8-14.3); White Blood Cell 24.9 10^3/uL (4.4-10.8)
[2024-01-02] MEDS: ONDANSETRON HCL 4 MG/2 ML VIAL IV ONE (21:57)
[2024-01-02] MEDS: SODIUM CHLORIDE 0.9% 1,000 ML IV ONE (21:57)
[2024-01-02] MEDS: PANTOPRAZOLE 40 MG/10 ML VIAL INJ IV ONE (21:57)
[2024-01-02 22:33] LABS: Alanine Aminotransferase 15 U/L (7-40); Albumin 4.1 g/dL (3.2-4.8); Alkaline Phosphatase 71 U/L (46-116); Anion Gap 13 (5-15); Aspartate Aminotransferase < 8 U/L (13-40); Bilirubin, Total 0.2 mg/dL (0.2-1.0); Blood Urea Nitrogen 41 mg/dL (9-23); Carbon Dioxide 15 mmol/L (20-30); Chloride 111 mmol/L (98-107); Glucose 233 mg/dL (74-106); INR 1.04 (0.9-1.15); Partial Thromboplastin Time 22.2 SEC (24.5-34.5); Potassium 4.2 mmol/L (3.5-5.1); Sodium 139 mmol/L (136-145); Total Protein 5.8 g/dL (5.7-8.2)
[2024-01-02 23:43] LABS: Lactic Acid w/Reflex 5.8 mmol/L (0.4-2.0)
[2024-01-03] MEDS ORDERED: VANCOMYCIN PER PHARMACY 0 MG IV SCH ×2 (00:45→01:00)
[2024-01-03 00:49] LABS: Hematocrit 27.9 % (41.0-53.0)
[2024-01-03 01:00] VITALS: PULSE 108; RESP 22; O2SAT 98
[2024-01-03] MEDS: SODIUM CHLORIDE 0.9% 1,000 ML IV ONE ×2 (01:08→06:16)
[2024-01-03] MEDS: PIPERACILLIN-TAZO 4.5GM 100 ML IV ONE (01:11)
[2024-01-03] MEDS: VANCOMYCIN 1GM/200ML 200 ML IV ONE ×2 (01:42→02:00)
[2024-01-03] MEDS: MORPHINE SULFATE INJ 2 MG/ml SYRG ONE (03:12)
[2024-01-03] MEDS: MORPHINE SULFATE INJ 2 MG/ml SYRG IV ONE (03:14)
[2024-01-03] MEDS: cefTRIAXone 1GM/50ML D5W 50 ML IV ONE (11:53)
[2024-01-03] MEDS: PANTOPRAZOLE 40 MG/10 ML VIAL INJ IV ONE (11:53)
[2024-01-03] MEDS: PANTOPRAZOLE 40 MG/10 ML VIAL INJ IV SCH ×2 (11:54→22:52)
[2024-01-03] MEDS: cefTRIAXone 1GM/50ML D5W 50 ML IV SCH (11:54)
[2024-01-03] MEDS: SUCRALFATE 1 GM/10 ML ORAL SUSP GT SCH (12:04)
[2024-01-03] MEDS: VANCOMYCIN 1GM/200ML 200 ML IV SCH (17:42)
[2024-01-03] MEDS: GABAPENTIN 300 MG CAP PO ONE (17:57)
[2024-01-03 19:30] VITALS: PULSE 95; RESP 20; O2SAT 98
[2024-01-03] MEDS: GABAPENTIN 300 MG CAP PO SCH (22:00)
[2024-01-04] VITALS (11 sets, daily range): BP systolic 103–142; BP diastolic 58–79; PULSE 78–97; RESP 14–20; TEMP 97.5–98.3; O2SAT 94–99
[2024-01-04 07:01] LABS: Eosinophils # (auto) 0.2 10 ^3/uL (0-0.8); Hematocrit 20.5 % (41.0-53.0); Lymphocytes # (auto) 1.2 10 ^3/uL (0.4-5.4); Monocytes # (auto) 0.6 10 ^3/uL (0-1.3); Red Blood Cells 2.03 10^6/uL (4.5-5.90); White Blood Cell 6.8 10^3/uL (4.4-10.8)
[2024-01-04 07:04] LABS: Basophils # (auto) 0.1 10 ^3/uL (0-0.2); Basophils % (auto) 0.9 % (0.0-2.0); Eosinophils % (auto) 2.3 % (0.0-7.0); Lymphocytes % (auto) 16.9 % (10.0-50.0); Mean Corpuscular Hemoglobin 32.7 pg (28.0-32.0); Mean Corpuscular Hgb Conc. 32.3 g/dL (32.0-36.0); Mean Corpuscular Volume 101.2 fL (80.0-100.0); Monocytes % (auto) 8.4 % (0.0-12.0); Neutrophils # (auto) 4.9 10 ^3/uL (1.6-8.6); Neutrophils % (auto) 71.5 % (37.0-80.0); Nucleated Red Blood Cells % 0.1 %; Red Cell Distribution Width 14.1 % (11.8-14.3)
[2024-01-04 07:10] LABS: Alanine Aminotransferase 13 U/L (7-40); Albumin 3.3 g/dL (3.2-4.8); Alkaline Phosphatase 61 U/L (46-116); Anion Gap 7 (5-15); BUN/Creatinine Ratio 19.4 (10.0-20.0); Blood Urea Nitrogen 20 mg/dL (9-23); Calcium 8.4 mg/dL (8.7-10.4); Carbon Dioxide 20 mmol/L (20-30); Chloride 115 mmol/L (98-107); Sodium 142 mmol/L (136-145)
[2024-01-04 07:11] LABS: Aspartate Aminotransferase 19 U/L (13-40); Bilirubin, Total 0.3 mg/dL (0.2-1.0); Hemoglobin 6.6 g/dL (13.5-17.5)
[2024-01-04 07:12] LABS: Glucose 107 mg/dL (74-106)
[2024-01-04] MEDS: cefTRIAXone 1GM/50ML D5W 50 ML IV ONE (13:29)
[2024-01-04 18:08] LABS: Urine Bacteria None Seen /hpf (None Seen)
[2024-01-04 18:47] LABS: Urine Blood Negative /uL (Negative); Urine Clarity Clear (Clear); Urine Color Light-Yellow (Yellow); Urine Protein, UAD Negative (Negative); Urine Urobilinogen Normal (Negative); Urine WBC <1 /hpf (0 - 3); Urine pH 5.5 (5.0-9.0)
[2024-01-04 22:28] LABS: Basophils # (auto) 0 10 ^3/uL (0-0.2); Basophils % (auto) 0.7 % (0.0-2.0); Eosinophils # (auto) 0.1 10 ^3/uL (0-0.8); Eosinophils % (auto) 2.3 % (0.0-7.0); Hematocrit 24.5 % (41.0-53.0); Hemoglobin 8.1 g/dL (13.5-17.5); Lymphocytes # (auto) 1.4 10 ^3/uL (0.4-5.4); Lymphocytes % (auto) 22.1 % (10.0-50.0); Mean Corpuscular Hemoglobin 28.6 pg (28.0-32.0); Mean Corpuscular Hgb Conc. 32.9 g/dL (32.0-36.0); Mean Corpuscular Volume 86.8 fL (80.0-100.0); Monocytes # (auto) 0.6 10 ^3/uL (0-1.3); Monocytes % (auto) 9.4 % (0.0-12.0); Neutrophils # (auto) 4.2 10 ^3/uL (1.6-8.6); Neutrophils % (auto) 65.5 % (37.0-80.0); Nucleated Red Blood Cells % 0.1 %; Red Blood Cells 2.83 10^6/uL (4.5-5.90); White Blood Cell 6.4 10^3/uL (4.4-10.8)
[2024-01-04 22:29] LABS: Red Cell Distribution Width 29.3 % (11.8-14.3)
[2024-01-04 22:43] LABS: Anisocytosis Moderate; Platelet Estimate Adequate
[2024-01-05] VITALS (9 sets, daily range): BP systolic 127–147; BP diastolic 61–90; PULSE 59–93; RESP 16–22; TEMP 97.9–98.6; O2SAT 93–100
[2024-01-05 10:20] LABS: Chloride 113 mmol/L (98-107); Potassium 3.8 mmol/L (3.5-5.1); Sodium 140 mmol/L (136-145)
[2024-01-05 10:21] LABS: Anion Gap 8 (5-15); Calcium 8.7 mg/dL (8.5-10.1); Carbon Dioxide 19 mmol/L (20-30)
[2024-01-05 10:26] LABS: BUN/Creatinine Ratio 12.1 (10.0-20.0); Blood Urea Nitrogen 12 mg/dL (9-23); Glucose 95 mg/dL (74-106)
[2024-01-05 10:49] LABS: Basophils # (auto) 0 10 ^3/uL (0-0.2); Basophils % (auto) 0.7 % (0.0-2.0); Eosinophils # (auto) 0.1 10 ^3/uL (0-0.8); Eosinophils % (auto) 2.2 % (0.0-7.0); Hematocrit 26.8 % (41.0-53.0); Hemoglobin 8.2 g/dL (13.5-17.5); Lymphocytes # (auto) 1.1 10 ^3/uL (0.4-5.4); Lymphocytes % (auto) 17.2 % (10.0-50.0); Mean Corpuscular Hemoglobin 28.5 pg (28.0-32.0); Mean Corpuscular Hgb Conc. 30.6 g/dL (32.0-36.0); Mean Corpuscular Volume 93.3 fL (80.0-100.0); Monocytes # (auto) 0.6 10 ^3/uL (0-1.3); Monocytes % (auto) 9.9 % (0.0-12.0); Neutrophils # (auto) 4.3 10 ^3/uL (1.6-8.6); Nucleated Red Blood Cells % 0.3 %; Red Blood Cells 2.87 10^6/uL (4.5-5.90); White Blood Cell 6.2 10^3/uL (4.4-10.8)
[2024-01-05 10:53] LABS: Red Cell Distribution Width 30.2 % (11.8-14.3)
[2024-01-05] MEDS: SUCRALFATE 1 GM/10 ML ORAL SUSP PO SCH (11:30)
[2024-01-05 11:56] LABS: Platelet Estimate Adequate
[2024-01-05 11:58] LABS: Anisocytosis Marked; Ovalocytes MODERATE; Tear Drop Cells FEW
[2024-01-05] MEDS ORDERED: SODIUM CHLORIDE LOCK 10 ML ONE (11:59)
[2024-01-05 12:33] LABS: Hematocrit 28.5 % (41.0-53.0); Hemoglobin 9.1 g/dL (13.5-17.5)
[2024-01-05] MEDS: LIDOCAINE VISCOUS 2% 15ML UD ONE (14:32)
[2024-01-05] MEDS: fentaNYL CITRATE 100 MCG/2 ML VL ONE (14:34)
[2024-01-05] MEDS: diphenhdrAMINE HCL 50 MG/1 ML VL ONE (14:34)
[2024-01-05] MEDS: MIDAZOLAM HCL 5 MG/ML-1ML VIAL ONE (14:34)
[2024-01-05] MEDS ORDERED: EPINEPHrine HCL 1 MG/10 ML SYRG ONE (14:40)
[2024-01-05] MEDS ORDERED: CLINIMIX PER PHARMACY 0 ML IV SCH (15:00)
[2024-01-05] MEDS: PANTOPRAZOLE 40mg/50ML NS AE 50 ML IV SCH (16:53)
[2024-01-05 16:54] LABS: Magnesium 1.6 mg/dL (1.6-2.6)
[2024-01-05 16:55] LABS: Phosphorus 3.2 mg/dL (2.4-5.1)
[2024-01-05] MEDS: MAGNESIUM SULFATE 1GM/100ML 100 ML IV SCH (18:37)
[2024-01-05] MEDS: AMINO ACID INFUSION IN D5W 1,000 ML IV SCH (23:10)
[2024-01-06] VITALS (9 sets, daily range): BP systolic 138–163; BP diastolic 70–87; PULSE 65–95; RESP 14–19; TEMP 97.4–99.1; O2SAT 94–98
[2024-01-06] MEDS: InsuLIN REG 1unit/0.01ml Soln (100units/ml) SC SCH
[2024-01-06] MEDS: ACCU-CHEK COMFORT CURVE STRIP VI SCH
[2024-01-06] MEDS ORDERED: DEXTROSE (50%) 50ML SYRG IV SCH
[2024-01-06 07:18] LABS: Alanine Aminotransferase 17 U/L (7-40); Albumin 3.3 g/dL (3.2-4.8); Alkaline Phosphatase 71 U/L (46-116); Anion Gap 10 (5-15); Aspartate Aminotransferase 17 U/L (13-40); BUN/Creatinine Ratio 15.2 (10.0-20.0); Bilirubin, Total 0.3 mg/dL (0.2-1.0); Blood Urea Nitrogen 14 mg/dL (9-23); Calcium 8.5 mg/dL (8.7-10.4); Carbon Dioxide 17 mmol/L (20-30); Chloride 110 mmol/L (98-107); Glucose 93 mg/dL (74-106); Magnesium 1.7 mg/dL (1.6-2.6); Phosphorus 3.3 mg/dL (2.4-5.1); Potassium 3.8 mmol/L (3.5-5.1); Sodium 137 mmol/L (136-145); Total Protein 4.7 g/dL (5.7-8.2)
[2024-01-06 07:20] LABS: Basophils # (auto) 0 10 ^3/uL (0-0.2); Basophils % (auto) 0.8 % (0.0-2.0); Eosinophils # (auto) 0.2 10 ^3/uL (0-0.8); Eosinophils % (auto) 3.7 % (0.0-7.0); Hematocrit 26.4 % (41.0-53.0); Lymphocytes # (auto) 1.1 10 ^3/uL (0.4-5.4); Lymphocytes % (auto) 19.9 % (10.0-50.0); Mean Corpuscular Hemoglobin 28.9 pg (28.0-32.0); Mean Corpuscular Hgb Conc. 30.2 g/dL (32.0-36.0); Mean Corpuscular Volume 95.9 fL (80.0-100.0); Monocytes # (auto) 0.6 10 ^3/uL (0-1.3); Monocytes % (auto) 11.6 % (0.0-12.0); Neutrophils # (auto) 3.6 10 ^3/uL (1.6-8.6); Nucleated Red Blood Cells % 0.1 %; Red Blood Cells 2.75 10^6/uL (4.5-5.90); Red Cell Distribution Width 28.4 % (11.8-14.3); White Blood Cell 5.6 10^3/uL (4.4-10.8)
[2024-01-06] MEDS: MAGNESIUM SULFATE 1GM/100ML 100 ML IV SCH (12:46)
[2024-01-07 05:00] VITALS: BP 161/80; PULSE 78; RESP 17; TEMP 98.2; O2SAT 97
[2024-01-07 09:00] VITALS: BP 153/78; PULSE 70; RESP 17; TEMP 97.7; O2SAT 96
[2024-01-07] MEDS: ONDANSETRON HCL 4 MG/2 ML VIAL IV PRN (09:32)
[2024-01-07 10:38] LABS: Basophils # (auto) 0.1 10 ^3/uL (0-0.2); Basophils % (auto) 0.8 % (0.0-2.0); Eosinophils # (auto) 0.2 10 ^3/uL (0-0.8); Eosinophils % (auto) 3.2 % (0.0-7.0); Hematocrit 26.9 % (41.0-53.0); Hemoglobin 9.1 g/dL (13.5-17.5); Lymphocytes # (auto) 0.9 10 ^3/uL (0.4-5.4); Lymphocytes % (auto) 12.4 % (10.0-50.0); Mean Corpuscular Hemoglobin 29.3 pg (28.0-32.0); Mean Corpuscular Hgb Conc. 33.8 g/dL (32.0-36.0); Mean Corpuscular Volume 86.9 fL (80.0-100.0); Monocytes # (auto) 0.6 10 ^3/uL (0-1.3); Monocytes % (auto) 8.4 % (0.0-12.0); Neutrophils # (auto) 5.2 10 ^3/uL (1.6-8.6); Neutrophils % (auto) 75.2 % (37.0-80.0); Nucleated Red Blood Cells % 0.1 %; Red Blood Cells 3.09 10^6/uL (4.5-5.90); Red Cell Distribution Width 27.3 % (11.8-14.3); White Blood Cell 6.9 10^3/uL (4.4-10.8)
[2024-01-07 10:51] LABS: Alanine Aminotransferase 15 U/L (7-40); Albumin 3.8 g/dL (3.2-4.8); Alkaline Phosphatase 80 U/L (46-116); Anion Gap 8 (5-15); Aspartate Aminotransferase 13 U/L (13-40); BUN/Creatinine Ratio 13.2 (10.0-20.0); Blood Urea Nitrogen 12 mg/dL (9-23); Carbon Dioxide 21 mmol/L (20-30); Chloride 109 mmol/L (98-107); Glucose 119 mg/dL (74-106); Magnesium 1.7 mg/dL (1.6-2.6); Phosphorus 2.7 mg/dL (2.4-5.1); Potassium 3.6 mmol/L (3.5-5.1); Sodium 138 mmol/L (136-145)
[2024-01-07 10:52] LABS: Bilirubin, Total 0.3 mg/dL (0.2-1.0); Total Protein 5.7 g/dL (5.7-8.2)
[2024-01-07] MEDS ORDERED: VANCOMYCIN 1GM/200ML 200 ML IV SCH (12:30)
[2024-01-07] MEDS ORDERED: IRON SUCROSE COMPLEX 100 ML IV ONE (12:30)
[2024-01-07 13:00] VITALS: BP 120/84; PULSE 79; RESP 17; TEMP 98; O2SAT 98
[2024-01-07] MEDS: SODIUM FERR GLUC 62.5MG/5ML 125 MG in SODIUM CHL 0.9% 100 ML IV ONE (13:45)
[2024-01-07] MEDS: ACETAMINOPHEN 325 MG TAB PO PRN (14:01)
[2024-01-07] MEDS: MAGNESIUM SULFATE 1GM/100ML 100 ML IV SCH (15:55)
[2024-01-07 17:00] VITALS: BP 151/84; PULSE 73; RESP 17; TEMP 98; O2SAT 96
[2024-01-07 21:00] VITALS: BP 144/72; PULSE 68; RESP 20; TEMP 98.2; O2SAT 91
[2024-01-08] MEDS: VANCOMYCIN 1GM/200ML 200 ML IV SCH (00:30)
[2024-01-08 01:00] VITALS: BP 138/78; PULSE 73; RESP 20; TEMP 97.9; O2SAT 95
[2024-01-08 04:59] VITALS: BP 145/78; PULSE 85; RESP 16; TEMP 97.9; O2SAT 93
[2024-01-08 06:35] LABS: Potassium 3.3 mmol/L (3.5-5.1)
[2024-01-08 06:36] LABS: Calcium 8.9 mg/dL (8.5-10.1)
[2024-01-08 06:41] LABS: BUN/Creatinine Ratio 9.8 (10.0-20.0)
[2024-01-08 06:42] LABS: Magnesium 1.7 mg/dL (1.6-2.6)
[2024-01-08 06:43] LABS: Albumin 3.6 g/dL (3.2-4.8)
[2024-01-08 06:44] LABS: Phosphorus 2.7 mg/dL (2.4-5.1)
[2024-01-08 06:53] LABS: Basophils # (auto) 0.1 10 ^3/uL (0-0.2); Eosinophils # (auto) 0.3 10 ^3/uL (0-0.8); Eosinophils % (auto) 4.6 % (0.0-7.0); Hematocrit 26.1 % (41.0-53.0); Hemoglobin 8.9 g/dL (13.5-17.5); Lymphocytes # (auto) 0.8 10 ^3/uL (0.4-5.4); Lymphocytes % (auto) 12.9 % (10.0-50.0); Mean Corpuscular Hemoglobin 29.3 pg (28.0-32.0); Mean Corpuscular Volume 86.1 fL (80.0-100.0); Monocytes # (auto) 0.6 10 ^3/uL (0-1.3); Monocytes % (auto) 9.8 % (0.0-12.0); Neutrophils # (auto) 4.3 10 ^3/uL (1.6-8.6); Neutrophils % (auto) 71.7 % (37.0-80.0); Nucleated Red Blood Cells % 0.2 %; Red Blood Cells 3.03 10^6/uL (4.5-5.90); Red Cell Distribution Width 27.5 % (11.8-14.3)
[2024-01-08 07:15] LABS: Platelet Estimate Adequate
[2024-01-08 07:16] LABS: Anisocytosis Slight
[2024-01-08 09:00] VITALS: BP 153/75; PULSE 70; RESP 18; TEMP 97.3; O2SAT 97
[2024-01-08] MEDS ORDERED: IRON SUCROSE COMPLEX 100 ML IV SCH (12:00)
[2024-01-08 13:00] VITALS: BP 132/86; PULSE 69; RESP 18; TEMP 97.7; O2SAT 97
[2024-01-08 17:00] VITALS: BP 157/91; PULSE 105; RESP 18; TEMP 98; O2SAT 98
[2024-01-08] MEDS: SODIUM FERR GLUC 62.5MG/5ML 125 MG in SODIUM CHL 0.9% 100 ML IV SCH (17:33)
[2024-01-08] MEDS: POTASSIUM PHOSPHATE 22 MEQ in SODIUM CHL 0.9% 100 ML IV ONE (19:31)
[2024-01-08 21:00] VITALS: BP 146/86; PULSE 76; RESP 17; TEMP 98.2; O2SAT 96
[2024-01-09 05:00] VITALS: BP 148/80; PULSE 85; RESP 17; TEMP 98.3; O2SAT 94
[2024-01-09 09:00] VITALS: BP 137/76; PULSE 86; RESP 20; TEMP 98.3; O2SAT 94
[2024-01-09] MEDS: PANTOPRAZOLE 40 MG TAB PO SCH (09:24)
[2024-01-09 12:59] VITALS: BP 151/85; PULSE 73; RESP 18; TEMP 97.7; O2SAT 96
[2024-01-09 17:00] VITALS: BP 156/84; PULSE 78; RESP 20; TEMP 97.9; O2SAT 95
[2024-01-09 21:00] VITALS: BP 147/87; PULSE 91; RESP 20; TEMP 98; O2SAT 95
[2024-01-10] VITALS (8 sets, daily range): BP systolic 110–160; BP diastolic 75–87; PULSE 82–92; RESP 16–20; TEMP 98–98.4; O2SAT 90–96
[2024-01-10 09:24] LABS: Basophils # (auto) 0 10 ^3/uL (0-0.2); Basophils % (auto) 0.8 % (0.0-2.0); Eosinophils # (auto) 0.3 10 ^3/uL (0-0.8); Eosinophils % (auto) 4.2 % (0.0-7.0); Hematocrit 27.6 % (41.0-53.0); Hemoglobin 9.1 g/dL (13.5-17.5); Lymphocytes # (auto) 0.8 10 ^3/uL (0.4-5.4); Lymphocytes % (auto) 13.8 % (10.0-50.0); Mean Corpuscular Hemoglobin 29.6 pg (28.0-32.0); Mean Corpuscular Volume 89.5 fL (80.0-100.0); Monocytes # (auto) 0.6 10 ^3/uL (0-1.3); Monocytes % (auto) 9.5 % (0.0-12.0); Neutrophils # (auto) 4.3 10 ^3/uL (1.6-8.6); Neutrophils % (auto) 71.7 % (37.0-80.0); Nucleated Red Blood Cells % 0.1 %; Red Blood Cells 3.09 10^6/uL (4.5-5.90); White Blood Cell 5.9 10^3/uL (4.4-10.8)
[2024-01-10 09:37] LABS: Red Cell Distribution Width 27.7 % (11.8-14.3)
[2024-01-10 09:40] LABS: Alanine Aminotransferase 10 U/L (7-40); Albumin 3.8 g/dL (3.2-4.8); Alkaline Phosphatase 89 U/L (46-116); Anion Gap 6 (5-15); Aspartate Aminotransferase 10 U/L (13-40); BUN/Creatinine Ratio 7.6 (10.0-20.0); Bilirubin, Total 0.3 mg/dL (0.2-1.0); Blood Urea Nitrogen 7 mg/dL (9-23); Carbon Dioxide 23 mmol/L (20-30); Chloride 113 mmol/L (98-107); Glucose 167 mg/dL (74-106); Potassium 3.5 mmol/L (3.5-5.1); Sodium 142 mmol/L (136-145)
[2024-01-10 09:41] LABS: Total Protein 5.5 g/dL (5.7-8.2)
[2024-01-10 09:47] LABS: Anisocytosis Moderate; Platelet Estimate Adequate; Polychromasia Slight
[2024-01-10 10:41] LABS: COVID19 ANTIGEN SOFIA FIA NEGATIVE (NEGATIVE)
[2024-01-10 12:32] LABS: INR 1.09 (0.9-1.15); Partial Thromboplastin Time 27.3 SEC (24.5-34.5); Prothrombin Time 11.5 sec (9.3-11.8)
[2024-01-10] MEDS ORDERED: LIDOCAINE 1% (LOCAL ANESTH.) PF 5ml SDV ID ONE (16:15)
[2024-01-10] MEDS ORDERED: cloNIDine HCL 0.1 MG TAB PO PRN (16:45)
[2024-01-10] MEDS: cloNIDine HCL 0.1 MG TAB PO ONE (16:49)
[2024-01-10] MEDS ORDERED: SODIUM CHLOR 0.9% PF (SALINE LOCK) 10ML VIAL/SYR IV SCH (22:00)
[2024-01-11] MEDS ORDERED: VANCOMYCIN 1GM/200ML 200 ML IV SCH
== END 2024-01-10 18:15 | DRG 871 ==
LOC: ER 19:25 → EDBD 19:25 → OVERFLOW 01-03 00:36 → ER 01-03 00:36 → WEST WING 01-03 23:40
PROVIDERS: ADMIT Nurse Practitioner; ATTEND Family Medicine
PROC: 30233N1 Transfusion of Nonautologous Red Blood Cells into Peripheral Vein, Percutaneous Approach (ICD-10-PCS; 2024-01-04)
PROC: 3E0G8GC Introduction of Other Therapeutic Substance into Upper GI, Via Natural or Artificial Opening Endoscopic (ICD-10-PCS; principal; 2024-01-05 14:16)
PROC: 02HV33Z Insertion of Infusion Device into Superior Vena Cava, Percutaneous Approach (ICD-10-PCS; 2024-01-10)
PROC: B548ZZA Ultrasonography of Superior Vena Cava, Guidance (ICD-10-PCS; 2024-01-10)
DX: A41.9 Sepsis, unspecified organism (principal); G93.41 Metabolic encephalopathy; K26.4 Chronic or unspecified duodenal ulcer with hemorrhage; N17.0 Acute kidney failure with tubular necrosis; R65.21 Severe sepsis with septic shock; K29.91 Gastroduodenitis, unspecified, with bleeding; D62 Acute posthemorrhagic anemia; I10 Essential (primary) hypertension; E78.00 Pure hypercholesterolemia, unspecified; K57.30 Diverticulosis of large intestine without perforation or abscess without bleeding; N20.0 Calculus of kidney; Z20.822 Contact with and (suspected) exposure to COVID-19; E11.9 Type 2 diabetes mellitus without complications; K44.9 Diaphragmatic hernia without obstruction or gangrene; Z79.899 Other long term (current) drug therapy; Z86.73 Personal history of transient ischemic attack (TIA), and cerebral infarction without residual deficits; Z82.0 Family history of epilepsy and other diseases of the nervous system; Z83.3 Family history of diabetes mellitus; Z87.19 Personal history of other diseases of the digestive system; K29.80 Duodenitis without bleeding
CPT/HCPCS: 36415; 36569; 71045; 74176; 80048; 80053; 80069; 80202; 81001; 82565; 82962; 83605; 83735; 83880; 84100; 84484; 85014; 85018; 85025; 85610; 85730; 86850; 86900; 86901; 86920; 87040; 87081; 87086; 87426; 93005; 97162; 99291; C9113; G0378; J2250; J2405; J2543

== ENCOUNTER 2025-05-15 03:33 | Emergency (ER) | payer OTHER ==
[~2025-05-15] VITALS: Ht 172.7 cm; Wt 77.0 kg
[~2025-05-15 03:33] MED LIST changes: -TAMS0.4C36 PO; +TAMS0.4C39 PO
[2025-05-15] MEDS: GABAPENTIN 300 MG CAP PO ONE (04:38)
--- NOTE | 2025-05-15 04:58 | ED.PDOC ---
Musculoskeletal HPI Comments 69 y/o M is BIBA with spouse for c/c right hip pain, with radiation to his right foot. Endorsement of sudden, unprovoked, and atraumatic onset of pain, that awoke him, this morning. Hx of collapsed vertebrae s/p back surgery. Denial of any weakness, numbness, tingling or further associated symptoms. Chief Complaint: Lower Extremity Time Seen by MD: 04:20 Primary Care Provider: ? Reviewed Notes: Nurses Notes, Medications, Allergies Allergies: Coded Allergies: NO KNOWN ALLERGIES (Unverified , 01/15/23) Home Meds Active Scripts Gabapentin (Once-Daily) (Gabapentin) 300 Mg Tab, 300 MG PO Q6HP PRN, #60 TAB Prov:ABEL PALENCIA MD 05/15/25 Sucralfate (Sucralfate) 1 Gm Tab, 1 GM PO QID, #120 TAB Prov:JANES KIRKLAND MD 12/21/23 Pantoprazole Sodium Sesquihydr (Pantoprazole Sodium) 40 Mg Tab, 40 MG PO BID, #60 TAB Prov:JANES KIRKLAND MD 12/21/23 Metronidazole (Flagyl) 500 Mg Tab, 1 TAB PO TID, #30 TAB Prov:JANES KIRKLAND MD 12/13/23 Levofloxacin Hemihydrate (LEVAQUIN 500 MG) 500 Mg Tab, 1 TAB PO DAILY, #10 TAB Prov:JANES KIRKLAND MD 12/13/23 Nifedipine (Nifedipine Er) 30 Mg Tab, 60 MG PO DAILY for 30 Days, #60 TAB 30 Refills Prov:CARITO MUÑOZ DO 01/22/23 Metoprolol Tartrate (Lopressor) 25 Mg Tb, 25 MG PO BID for 30 Days, #60 TAB 3 Refills Prov:CARITO MUÑOZ DO 01/22/23 Clopidogrel Bisulfate (CLOPIDOGREL) 75 Mg Tab, 75 MG PO DAILY for 30 Days, #30 TAB 3 Refills Prov:CARITO MUÑOZ DO 01/22/23 Atorvastatin Calcium (ATORVASTATIN CALCIUM) 20 Mg Tab, 80 MG PO HS for 30 Days, #120 TAB 3 Refills Prov:CARITO MUÑOZ DO 01/22/23 Aspirin (Aspirin Low Dose) 81 Mg Tab, 81 MG PO DAILY for 30 Days, #30 TAB 3 Refills Prov:CARITO MUÑOZ DO 01/22/23 Reported Medications Benzonatate (Benzonatate) 100 Mg Cap, 1 CAP PO TID, #30 CAP 12/18/23 Tamsulosin Hcl (Tamsulosin Hcl) 0.4 Mg Cap, 0.4 MG PO QPM for 30 Days, MG 01/16/23 Gemfibrozil (Gemfibrozil) 600 Mg Tab, 600 MG PO BID 01/16/23 Lisinopril (Lisinopril) 5 Mg Tab, 5 MG PO DAILY for 30 Days, MG 01/16/23 Zonisamide (Zonisamide) 100 Mg Cap, 100 MG PO Q6HR, CAP 01/16/23 Information Source: Patient, Emergency Med Personnel Mode of Arrival: EMS Location: Right Past Medical History PAST MEDICAL HISTORY: CVA, DM, High Lipids, HTN, Seizures Surgical History: Denies all surgeries Family History Family History: Reviewed,noncontributory to illness Social History Smoker: Non-Smoker Alcohol: Denies ETOH Use, Sober Drugs: Denies Drug Use Lives In: Home All Other Systems: Reviewed and Negative (As per HPI) Physical Exam General Appearance: No Apparent Distress, Normal HEENT: Normal ENT Inspection, Pharynx Normal, TMs Normal Neck: Full Range of Motion, Non-Tender, Normal, Normal Inspection Respiratory: Chest Non-Tender, Lungs Clear, No Accessory Muscle Use, No Respiratory Distress, Normal Breath Sounds Cardiovascular: No Edema, No JVD, No Murmur, No Gallop, Normal Peripheral Pulses, Regular Rate/Rhythm Breast Exam: Deferred Gastrointestinal: No Organomegaly, Non Tender, No Pulsatile Mass, Normal Bowel Sounds, Soft Genitalia: Deferred Pelvic: Deferred Rectal: Deferred Extremities: No calf tenderness, Normal capillary refill, Normal inspection, Normal range of motion, No pedal edema, Tender (extends from right hip to foot ) Musculoskeletal : Apperance: Normal Neurologic: Alert, lime spreader II-XII nml as Tested, No Motor Deficits, Normal Affect, Normal Mood, No Sensory Deficits Cerebellar Function: Normal Reflexes: Normal Skin: Dry, Normal Color, Warm Lymphatic: No Adenopathy Was a procedure done? Was a procedure done?: No Differential Diagnosis EXT Differential Diagnosis: Cellulitis, Deep Vein Thrombosis, Fracture, Sprain, Strain, Rheumatoid, Neurovascular injury, Arthritis, Other (sciatica ) X-Ray, Labs, Meds, VS Vital Signs Date Time Temp Pulse Resp B/P (MAP) Pulse Ox O2 Delivery O2 Flow Rate FiO2 05/15/25 05:41 97.8 94 18 162/94 (116) 92 97.8 05/15/25 05:37 95 16 162/94 05/15/25 03:33 97.8 92 14 186/87 98 97.8 Current Medications Medications (Trade) Dose Ordered Sig/Samantha Route Start Time Stop Time Status Last Admin Oxycodone HCl 10 mg ONCE PRN PO 05/15/25 04:30 05/15/25 04:38 Gabapentin (Neurontin Capsule) 300 mg ONCE ONCE PO 05/15/25 04:30 05/15/25 04:31 DC 05/15/25 04:38 Hydromorphone HCl (Dilaudid Injection) 1 mg ONCE ONCE IM 05/15/25 05:30 05/15/25 05:31 DC 05/15/25 05:37 Time of 1ST Reevaluation: 04:30 Reevaluation 1ST: Unchanged Time of 2ND Reevaluation: 05:56 Reevaluation 2ND: Improved Patient Education/Counseling: Treatment, Need For Follow Up Family Education/Counseling: No Family Present Departure 1 Departure Time of Disposition: 07:00 Impression: Primary Impression: Sciatica Disposition: 01 HOME / SELF CARE / HOMELESS Condition: Stable e-Prescriptions Gabapentin (Once-Daily) (Gabapentin) 300 Mg Tab 300 MG PO Q6HP PRN, #60 TAB Prov: ABEL PALENCIA MD 05/15/25 Discharged With: Self Comments Patient with history of chronic back pain and prior back surgery now with right- sided sciatica. Patient was given pain medicines in the ER in his pain has improved. Patient is pending CT of the lumbar spine and right hip. Patient likely will be able to go home with a prescription for gabapentin pending CT results Critical Care Note Critical Care Time?: No Stability Stability form required: No Heart Score Heart Score: Heart Score Response (Comments) Value History N/A 0 EKG N/A 0 Age N/A 0 Risk Factors N/A 0 Troponin N/A 0 Total 0 I personally scribed for ABEL PALENCIA MD ([email or web address]) on 05/15/25 at 04:58. Electronically submitted by Christopher Loaiza [email or web address]). ABEL PALENCIA MD May 15, 2025 04:58
[2025-05-15] MEDS: HYDROmorphone HCL 2 MG/ML VL/or syr IM ONE (05:37)
[2025-05-15] MEDS ORDERED: GABA300T4 PO (05:54)
--- NOTE | 2025-05-15 06:37 | DVH ---
EXAM: CT LS SPINE WO CONTRAST INDICATION: pain COMPARISON: None TECHNIQUE: Multiple axial CT images of the lumbar spine were obtained using bone algorithm. Axial an d coronal reformatting was done. Bone and soft tissue windows were reviewed. Radiation Dose Information: CT Dose: CTDI volume is 30.19 mGy. Dose-length product is 1452.42 mGy*cm FINDINGS: No CT evidence of acute fracture or traumatic mal-alignment. The visualized paraspinal soft tissues a re grossly unremarkable. Postsurgical changes T11-L2. Kyphoplasty of T11 aortic atherosclerosis. IMPRESSION: No CT evidence of acute fracture or traumatic mal-alignment of the bony lumbar spine. Radiation optimization: All CT scans at this facility use at least one of these dose optimization terrie hniques: automated exposure control mA and/or kV adjustment per patient size (includes targeted exam s where dose is matched to clinical indication) or iterative reconstruction.
--- NOTE | 2025-05-15 06:58 | DVH ---
CLINICAL INFORMATION: Right hip pain. TECHNIQUE: Axial CT images of the right hip were obtained without IV contrast. Coronal and sagittal r eformatted images were obtained, reviewed, and stored. All CT scans at this medical facility are per formed using dose modulation techniques as appropriate to a performed exam including the following: A utomated exposure control was utilized; adjustment of the MA and/or KV according to patient size; and use of iterative reconstruction technique. CTDIvol = 13.07, 30.19, 0.48 mGy DLP = 1452.42 mGy-cm COMPARISON: None FINDINGS: No evidence of acute fracture or dislocation. Zhko-ov-ubhlbeao joint space narrowing of the right hip with mild subchondral sclerosis. Mild 2 moderate sclerosis adjacent to the right sacroilia c joint with partial ankylosis at the caudal aspect of the right sacroiliac joint. No significant sof t tissue abnormality identified. IMPRESSION: 1. No evidence of acute fracture. 2. 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
[2025-05-15 08:25] VITALS: BP 163/96; PULSE 94; RESP 18; TEMP 97.6; O2SAT 94
== END 2025-05-15 08:46 | disposition home or self-care (01) ==
LOC: ER 03:33 → EDBD 03:33 → ER 08:46
DX: M54.30 Sciatica, unspecified side (principal); E11.9 Type 2 diabetes mellitus without complications; I10 Essential (primary) hypertension; E78.5 Hyperlipidemia, unspecified; Z86.73 Personal history of transient ischemic attack (TIA), and cerebral infarction without residual deficits; Z79.899 Other long term (current) drug therapy; Z79.82 Long term (current) use of aspirin; Z79.02 Long term (current) use of antithrombotics/antiplatelets
CPT/HCPCS: 72131; 73700; 96372; 99284; J1171